=== PATIENT | male | born 1980 | race American Indian/Alaskan Native ===

== ENCOUNTER 2018-11-16 14:56 | Emergency (ER) | payer OTHER ==
[2018-11-16 15:09] VITALS: BP 127/84
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
--- NOTE | 2018-11-16 16:30 | XRay Report ---
PROCEDURE: XR FOREARM 1V LT TECHNIQUE: Left forearm radiograph, 2 views. HISTORY: pain/contusion COMPARISONS: None currently available. FINDINGS: There is no acute fracture. There is no evidence for healing fracture. There is no acute dislocation. There is no cortical destruction to suggest osteomyelitis. There are no suspicious osseous lesions. There are no radiopaque foreign objects. IMPRESSION: * No acute osseous findings. This document is electronically signed by Junaid Kirkland MD., Nov 16 2018 04:28:48 PM ET
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
== END 2018-11-16 17:34 | disposition home or self-care (01) ==
LOC: ED 14:56
DX: S50.812A Abrasion of left forearm, initial encounter (principal); V89.2XXA Person injured in unspecified motor-vehicle accident, traffic, initial encounter; Y93.89 Activity, other specified; Y92.488 Other paved roadways as the place of occurrence of the external cause; Y99.8 Other external cause status
CPT/HCPCS: 99283